=== PATIENT | female | born 1980 | race Asian ===

== ENCOUNTER 2016-08-21 15:26 | Emergency (ER) | payer BC ==
[~2016-08-21] VITALS: Ht 162.6 cm; Wt 51.8 kg
[2016-08-21 18:01] LABS: HEMATOCRIT 41.5 % (36.0-46.0); MCHC 33.7 G/DL (30.0-36.0); MCV 94.7 FL (83-99); MEAN PLAT.VOLUME 9.9 uM^3 (9.5-12.4); PLATELET COUNT 202 K/uL (156-360); RBC DIS.WIDTH-CV 11.9 % (11.8-14.6); RBC DIS.WIDTH-SD 41.5 % (39-53); RED BLOOD COUNT 4.38 M/uL (3.80-5.20); WHITE BLOOD COUNT 6.4 K/uL (4.1-10.2)
[2016-08-21 18:15] LABS: ADD MIUA? YES; BILIRUBIN NEGATIVE; BLOOD NEGATIVE; COLOR YELLOW ((YELLOW)); GLUCOSE (STRIP) NEGATIVE; KETONES NEGATIVE; LEUKOCYTES TRACE; NITRITE POSITIVE; PROTEIN (STRIP) 30; SPECIFIC GRAVITY 1.019 (1.000-1.030); UROBILINOGEN 0.2 MG/DL (0.2-1.0)
[2016-08-21 18:34] LABS: BACTERIA 3+ /HPF; EPITHELIAL CELLS 1+ /HPF; MUCUS 1+ /LPF; RED BLOOD CELLS 0-5 /HPF (0-5); WHITE BLOOD CELLS 0-5 /HPF (0-5)
[2016-08-21 19:31] LABS: CHLORIDE 112 mEq/L (99-109); POTASSIUM 3.8 mEq/L (3.7-5.4); SODIUM 141 mEq/L (136-147)
[2016-08-21 19:34] LABS: GLUCOSE 80 mg/dL (70-99)
[2016-08-21 19:35] LABS: ANION GAP 8 MEQ/L (2-14); TOTAL BILIRUBIN 0.5 mg/dL (0.0-1.0)
[2016-08-21 19:37] LABS: ALKALINE PHOSPHATASE 41 IU/L (3-129); GFR ESTIMATE (CALCULATED) > 59 mL/min/
[2016-08-21 19:38] LABS: UREA NITROGEN (BUN) 10 mg/dL (9-23)
[2016-08-21 19:47] LABS: QUANTITATIVE HCG < 4.0 MIU/ML
[2016-08-21] MEDS ORDERED: ZOFRAN ODT4 MG PO (19:51)
[2016-08-21] MEDS ORDERED: KEFLEX500 MG PO (20:44)
[2016-08-21] MEDS ORDERED: BACTRIM,SEPT1 TABLET PO (21:01)
[2016-08-21 21:38] VITALS: BP 100/67
== END 2016-08-21 21:41 | disposition home or self-care (01) ==
LOC: EME 15:26
PROVIDERS: Nurse Practitioner Family
DX: N39.0 Urinary tract infection, site not specified (principal); R51 Headache; R11.2 Nausea with vomiting, unspecified; Z87.891 Personal history of nicotine dependence; H53.8 Other visual disturbances; E05.90 Thyrotoxicosis, unspecified without thyrotoxic crisis or storm
CPT/HCPCS: 70450; 80053; 81003; 84702; 85027; 87077; 87086; 87186; 99281; 99284; J2405; J7030